=== PATIENT | female | born 1970 | race African-American/Black ===

== ENCOUNTER 2018-08-06 00:15 | Inpatient (IN) ==
[2018-08-06] MEDS ORDERED: NS 1,000 ML IV ONE (00:39)
[2018-08-06] MEDS ORDERED: ZOFRAN IV ONE (00:39)
[2018-08-06] MEDS ORDERED: TORADOL IV ONE (00:40)
--- NOTE | 2018-08-06 01:16 | PROVIDER DOCUMENTATION ---
This chart was entered by Sunni Bethea Scribe, acting as scribe for Jocelin Juarez CRNP. HPI-General Adult - General Source: patient - History of Present Illness -Gen Adult Nature of Presenting Problems: pt is a 48 yr old female presenting with complaint of worsening right chest pain , pt seen here yesterday morning for same, dx as pneumonia. pt reports despite taking the prescribed medications the pain is worsening, pt reports she can not stand or walk due to the pain. Location of Pain/Injury: reports: chest (right) Pain Radiation: reports: no radiation Quality of Pain: reports: pressure, sharp Severity: reports: severe Onset/Duration: reports: 2 days ago Timing: reports: still present, getting worse Context/Activities at Onset: reports: rest Modifying Factors: improves with: other medication (norco, levaquin- pain worsening) Associated Symptoms: reports: chest pain (right) Similar Symptoms Previously?: Yes Recently seen or treated by another doctor?: Yes <Jocelin Juarez - Last Filed: 08/06/18 01:47> <Toni Leong - Last Filed: 08/06/18 04:38> - General Chief Complaint: Return/Recheck Stated Complaint: RETURN/RECHECK Time Seen by Provider: 08/06/18 00:32 Allergies/Adverse Reactions: Patient Allergies Allergy/AdvReac Type Severity Reaction Status Date / Time No Known Allergies Allergy Verified 08/05/18 04:54 Home Medications: Home Medication List Medication Instructions Recorded Confirmed Last Taken Type Losartan/Hydrochlorothiazide 1 each PO DAILY 07/25/16 08/06/18 07/30/16 20:00 History [Losartan-Hctz 100-12.5 mg Tab] 1 Norgestrel-Ethinyl Estradiol 1 each PO DAILY 07/25/16 08/06/18 07/30/16 20:00 History [Elinest-28 Tablet] 1 Levofloxacin [Levaquin] 500 mg PO DAILY 7 Days #7 tab 08/05/18 08/06/18 Unknown Rx Oxycodone HCl/Acetaminophen 1 ea PO Q6-8H PRN PRN #10 tab 08/05/18 08/06/18 Unknown Rx [Percocet 5-325 mg Tablet] Review of Systems - Adult - REVIEW OF SYSTEMS - ADULT Constitutional: denies: chills, fever Eyes: denies: discharge, redness Ears, Nose, Mouth & Throat: denies: ear pain, sinus problem, throat pain Cardiovascular: reports: chest pain. denies: palpitations, syncope Respiratory: denies: cough, shortness of breath Gastrointestinal: reports: no symptoms reported Genitourinary: reports: no symptoms reported Musculoskeletal: denies: back pain, muscle aches, neck pain Integumentary: reports: no symptoms reported Neurological: denies: dizziness/vertigo, headache/migraines Psychiatric: reports: no symptoms reported Endocrine: reports: no symptoms reported Hematologic/Lymphatic: reports: no symptoms reported Allergic/Immunologic: reports: no symptoms reported All Other Systems: Reviewed and Negative <Jocelin Juarez - Last Filed: 08/06/18 01:47> Past History - Adult - PAST MEDICAL HISTORY-ADULT Review of Records: reports: Old Records Reviewed, Nursing Assessment Review, Medications Reviewed, Social history reviewed & non-contributory. Major Childhood Illnesses: reports: denies history Cardiovascular: reports: HTN Respiratory: reports: denies history Gastrointestinal: reports: denies history Obstetrical/Gynecological: reports: denies history Genitourinary: reports: denies history Musculoskeletal: reports: denies history Neurological: reports: denies history Endocrine/Immune: reports: thyroid disorder (goiter) Other Conditions: reports: denies history - PRIOR SURGERIES/PROCEDURES Surgical/Procedure History: reports: none - IMMUNIZATION STATUS Childhood Immunizations: See Nurse Assessment Flu Vaccine: See Nurse Assessment - FAMILY HISTORY Family History: reviewed, not pertinent - SOCIAL HISTORY Smoking: denies Substance Use: denies Living Situation: alone <Jocelin Juarez - Last Filed: 08/06/18 01:47> Physical Exam-General - PHYSICAL EXAM-ADULT Initial Vital Signs Reviewed: Yes - CONSTITUTIONAL General Appearance: alert, no apparent distress, obese - EYES Eyes: PERRL/EOMI - HEAD, EARS, NOSE, MOUTH & THROAT HENMT: normocephalic/atraumatic, moist mucous membranes - NECK Neck: non-tender, full range of motion, supple, normal inspection - RESPIRATORY Respiratory: lungs clear, normal breath sounds, other (difficulty assessing right side breath sounds due to pain response. pt reports marked tenderness to right chest) - CARDIOVASCULAR Cardiovascular: normal peripheral pulses, regular rate, rhythm, no edema - GASTROINTESTINAL (ABDOMEN) Abdominal Exam: normal bowel sounds, non tender, soft - LYMPHATIC Lymphatic: no adenopathy - MUSCULOSKELETAL Back Exam: normal inspection Extremity: normal range of motion, non-tender, normal inspection - SKIN Integumentary: normal color, normal turgor, warm/dry - NEUROLOGIC Neurologic: grossly normal, no motor/sensory deficits - PSYCHIATRIC Psych/Mental Status: normal mood/affect, normal thought content, normal thought process, oriented x 3 <Jocelin Juarez - Last Filed: 08/06/18 01:47> Progress - PLAN OF CARE/RESULTS Progress/Plan/Lab Results: Vital Signs - 8 hr 08/06/18 00:18 Temperature 98.1 F Pulse Rate 84 Respiratory Rate 18 Blood Pressure 139/85 O2 Sat by Pulse Oximetry 97 Orders Category Date Time Status Saline Loc NOW Care 08/06/18 00:38 Active BLOOD CULTURE [BLDCUL] Stat Lab 08/06/18 00:58 Ordered CBC WITH ELECTRONIC DIFF [HEME] Stat Lab 08/06/18 00:38 Ordered COMPREHENSIVE METABOLIC PANEL [CHEM] Stat Lab 08/06/18 00:38 Ordered D-DIMER [COAG] Stat Lab 08/06/18 00:39 Ordered LACTATE, PLASMA [CHEM] Stat Lab 08/06/18 00:39 Ordered 0.9% Sodium Chloride Inj [Ns] 1,000 ml Med 08/06/18 00:39 Active IV 125 mls/hr Ketorolac [Toradol] Med 08/06/18 00:40 Discontinued 30 mg IV NOW ONE Ondansetron [Zofran] Med 08/06/18 00:39 Discontinued 4 mg IV NOW ONE Result Diagrams: 08/06/18 01:00 08/06/18 01:00 - CHANGE OF SHIFT REPORT (ED Provider) Report Given and Care Transferred to:: Dr. Leong Time of Transfer: 01:45 Items Pending: Labs <Jocelin Juarez - Last Filed: 08/06/18 01:47> - PLAN OF CARE/RESULTS Progress/Plan/Lab Results: Vital Signs - 8 hr 08/06/18 00:18 Temperature 98.1 F Pulse Rate 84 Respiratory Rate 18 Blood Pressure 139/85 O2 Sat by Pulse Oximetry 97 Laboratory Results - last 24 hr 08/06/18 08/06/18 08/06/18 01:00 01:00 01:00 WBC 12.67 H RBC 4.06 L Hgb 11.9 L Hct 35.8 L MCV 88.2 MCH 29.3 MCHC 33.2 RDW Std Deviation 12.8 Plt Count 292 MPV 10.0 Immature Gran % (Auto) 0.2 Neut % (Auto) 77.2 H Lymph % (Auto) 11.4 L [place] % (Auto) 10.4 H Eos % (Auto) 0.6 Baso % (Auto) 0.2 Immature Gran # (Auto) 0.03 Neut # (Auto) 9.77 H Lymph # (Auto) 1.45 [place] # (Auto) 1.32 H Eos # (Auto) 0.08 Baso # (Auto) 0.02 D-Dimer, Quantitative Sodium 138 Potassium 3.5 Chloride 101 Carbon Dioxide 24 L Anion Gap 13 BUN 12 Creatinine 0.8 Estimated GFR/1.73 m2 > 60 BUN/Creatinine Ratio 15 Glucose 113 H Calculated Osmolality 276 Calcium 9.2 Total Bilirubin 0.30 AST 13 ALT 16 Alkaline Phosphatase 56 Total Protein 7.8 Albumin 3.6 Globulin 4.0 Albumin/Globulin Ratio 1.0 Plasma Lactate 1.0 08/06/18 01:00 WBC RBC Hgb Hct MCV MCH MCHC RDW Std Deviation Plt Count MPV Immature Gran % (Auto) Neut % (Auto) Lymph % (Auto) [place] % (Auto) Eos % (Auto) Baso % (Auto) Immature Gran # (Auto) Neut # (Auto) Lymph # (Auto) [place] # (Auto) Eos # (Auto) Baso # (Auto) D-Dimer, Quantitative 3.31 H Sodium Potassium Chloride Carbon Dioxide Anion Gap BUN Creatinine Estimated GFR/1.73 m2 BUN/Creatinine Ratio Glucose Calculated Osmolality Calcium Total Bilirubin AST ALT Alkaline Phosphatase Total Protein Albumin Globulin Albumin/Globulin Ratio Plasma Lactate Orders Category Date Time Status Saline Loc NOW Care 08/06/18 00:[address] ANGIOGRM PULMONARY ARTERIES [CT] Stat Exams 08/06/18 02:38 Taken BLOOD CULTURE [BLDCUL] Stat Lab 08/06/18 00:58 Ordered CBC WITH ELECTRONIC DIFF [HEME] Stat Lab 08/06/18 01:00 Completed COMPREHENSIVE METABOLIC PANEL [CHEM] Stat Lab 08/06/18 01:00 Completed D-DIMER [COAG] Stat Lab 08/06/18 01:00 Completed LACTATE, PLASMA [CHEM] Stat Lab 08/06/18 01:00 Completed 0.9% Sodium Chloride Inj [Ns] 1,000 ml Med 08/06/18 00:39 Active IV 125 mls/hr CefTRIAXONE [Rocephin] 1 gm Med 08/06/18 01:44 Discontinued 0.9% Sodium Chloride Inj [Ns] 50 ml IV NOW Ketorolac [Toradol] Med 08/06/18 00:40 Discontinued 30 mg IV NOW ONE Ondansetron [Zofran] Med 08/06/18 00:39 Discontinued 4 mg IV NOW ONE Result Diagrams: 08/06/18 01:00 08/06/18 01:00 <Toni Leong - Last Filed: 08/06/18 04:38> Departure - Departure Date of Disposition Decision: 08/06/18 Certified Medical Emergency: Emergent - Critical Care Note This patient required my direct & personal management of CC.: No <Jocelin Juarez - Last Filed: 08/06/18 01:47> - Departure Time of Disposition Decision: 04:38 Certified Medical Emergency: Emergent - Critical Care Note This patient required my direct & personal management of CC.: No <Toni Leong - Last Filed: 08/06/18 04:38> - Departure DIAGNOSIS: Multiple pulmonary emboli, Pulmonary infarct Disposition: ADMITTED INPATIENT 09 Condition: Serious Additional Freetext Instructions: ED Follow Up Instructions: You have been treated by a care provider in the Emergency Department. These instructions are being provided to you so you can have an understanding of how to care for yourself upon discharge. Upon discharge from the Emergency Department, you are responsible for making arrangements for follow-up care by a physician of your choice. Take all prescribed medications as directed. Return to the Emergency Department immediately for any new or worsening symptoms. You may call the Physician Referral phone number at [phone] to obtain a list of Physicians who are taking new patients. Referrals and Follow-Ups: Susan Ba MD [Primary Care Provider] - Discharge Education: Community-Acquired Pneumonia, Adult, Nlyx-[id number] Attestation - Physician/ ROSTIA Attestation Patient care was provided by Advanced Practice Provider:: Yes Advanced Practice Provider:: Jocelin Juarez Advanced Practice Provider documentation review:: The Mid-level provider documentation, treatment plan and medical decision making was reviewed by the physician who agrees with all treatment and medical decision making by the MLP. The physician spent face to face time with patient:: Yes Advanced Practice Provider documentation review:: Supervising physician onsite and consulted in the evaluation and care of this patient. The physician did have a face to face encounter with the patient. <Jocelin Juarez - Last Filed: 08/06/18 01:47> - Physician/ ROSITA Attestation The physician spent face to face time with patient:: Yes Advanced Practice Provider documentation review:: Supervising physician onsite and consulted in the evaluation and care of this patient. The physician did have a face to face encounter with the patient. <Toni Leong - Last Filed: 08/06/18 04:38> This chart was documented by the indicated scribe, (Sunni Bethea Scribe) and accurately reflects the services I performed and decisions made by , Jocelin Juarez CRNP, as attested by the provider's signature.
[2018-08-06 01:24] LABS: BASO# 0.02 X1000 (0.0-0.2); BASO% 0.2 % (0.0-0.8); EOS# 0.08 X1000 (0.0-0.7); EOS% 0.6 % (0.0-10.0); HEMATOCRIT 35.8 % (37.0-47.0); HEMOGLOBIN 11.9 g/dL (12.0-16.0); IMM GRAN# 0.03 X1000 (0.0-0.04); IMM GRAN% 0.2 % (0.0-0.5); LYMPH# 1.45 X1000 (1.2-3.4); LYMPH% 11.4 % (20.5-51.1); MCH 29.3 PG (27-31); MCHC 33.2 g/dL (33-37); MCV 88.2 FL (81-99); MONO# 1.32 X1000 (0.11-0.59); MONO% 10.4 % (1.7-9.3); NEUT# 9.77 X1000 (1.4-6.5); NEUT% 77.2 % (42.2-75.2); PLT 292 X1000 (130-400); RBC 4.06 XMIL (4.2-5.4); RDW 12.8 % (11.5-14.5); WBC 12.67 X1000 (4.8-10.8)
[2018-08-06] MEDS ORDERED: ROCEPHIN 1 GM in NS 50 ML IV ONE (01:44)
[2018-08-06 01:45] LABS: AGAP 13; ALBUMIN 3.6 g/dL (3.5-5.0); ALKALINE PHOSPHATASE 56 U/L (32-104); BUN 12 mg/dL (8-22); CALCIUM 9.2 mg/dL (8.8-10.2); CHLORIDE 101 mmol/L (98-107); COSMO 276; CREATININE 0.8 mg/dL (0.5-0.9); ESTIMATED GFR > 60; GLUCOSE 113 mg/dL (70-104); GOT 13 U/L (10-30); GPT 16 U/L (10-36); POTASSIUM 3.5 mmol/L (3.5-5.1); SODIUM 138 mmol/L (136-145); TCO2 24 mmol/L (25-35); TOTAL PROTEIN 7.8 g/dL (6.3-8.3)
[2018-08-06] MEDS ORDERED: LOVENOX ONE (05:28)
[2018-08-06] MEDS: LOVENOX SUBQ SCH ×2 (05:30→20:44)
--- NOTE | 2018-08-06 07:43 | Diag Imaging Result Doc PS360 ---
EXAM: CT ANGIOGRM PULMONARY ARTERIES - 08/06/2018 HISTORY: chest pain TECHNIQUE: CT angiogram pulmonary arteries with intravenous contrast. Axial, coronal, and 3-D MIP images are obtained. COMPARISON: None. FINDINGS: There are filling defects in bilateral pulmonary arteries. These are consistent with pulmonary emboli. The largest embolus burden is located at the lower lobe and middle lobe on the right. There is no indication of aortic dissection. There is infiltrate and/or atelectasis at the right lower lobe. The possibility of pulmonary infarct at the right lower lobe cannot be excluded. There is a small right pleural effusion. There is subsegmental atelectasis elsewhere. There is no pneumothorax identified. The right thyroid lobe is either small or surgically absent. The left thyroid lobe is heterogeneous. Included sections of upper abdomen show a 2.3 cm cyst in the caudate lobe of liver. There is a 1.6 cm cyst at the visualized upper right kidney. There are small to borderline retroperitoneal lymph nodes near the celiac axis. IMPRESSION: Bilateral pulmonary emboli, most prominent on the right. Infiltrate and atelectasis at right lower lobe. The possibility of pulmonary infarct cannot be excluded. Small right pleural effusion. Small or surgically absent right thyroid lobe. Heterogeneous left thyroid lobe. Hepatic and right renal cyst. Small to borderline upper abdominal retroperitoneal lymph nodes. The airborne mission systems superintendent radiologist provided preliminary results at 4:27 AM on 08/06/2018. Electronically signed by Shiva Velez 08/06/2018 7:41 AM
[2018-08-06] MEDS ORDERED: PERCOCET-5 PO PRN (08:20)
[2018-08-06] MEDS ORDERED: LOVENOX SUBQ SCH ×2 (09:00)
[2018-08-06] MEDS ORDERED: HYZAAR 100/12.5 MG TAB PO SCH (09:00)
[2018-08-06] MEDS ORDERED: HYDROCHLOROTHIAZIDE PO SCH (09:00)
[2018-08-06] MEDS: MORPHINE IV PRN ×2 (09:28→16:18)
[2018-08-06] MEDS: ZITHROMAX PO SCH (09:29)
[2018-08-06] MEDS: COZAAR PO SCH (09:29)
--- NOTE | 2018-08-06 12:11 | Extremity Venous Study ---
EXAM: Venous U/S Bilateral Legs - 08/06/2018 HISTORY: bilateral PE TECHNIQUE: Bilateral lower extremity Doppler venous ultrasound COMPARISON: None. FINDINGS: The deep veins of the bilateral lower extremities demonstrate flow and compressibility. There are no filling defects identified in either lower extremity. IMPRESSION: No evidence of deep venous thrombosis in either lower extremity. Electronically signed by Shiva Velez 08/06/2018 12:08 PM
[2018-08-06] MEDS: TORADOL IV SCH ×3 (12:36→22:40)
--- NOTE | 2018-08-06 12:39 | HISTORY AND PHYSICAL ---
CHIEF COMPLAINT: Shortness of breath and back pain. HISTORY OF PRESENT ILLNESS: This is a 48-year-old female with a history of hypertension, who presents to the emergency room complaining of right-sided lower rib cage pain that starts in the front and goes around to the side into the back. It is increased with movement and deep breath. It does decrease somewhat with lying still. It started out with dyspnea on exertion, and she is going to shortness of breath at rest. In retrospect, she states that symptoms actually began around [place], and she was evaluated on 08/10/2017 and given antibiotics and steroids. Symptoms did not improve. She was evaluated again on 07/16/2018, given antibiotics, as well as steroids. Symptoms only continued to increase. She was found to have a white count of 12.6 with a D-dimer of 3.31. Pulmonary revealed bilateral pulmonary emboli with the largest embolus burden at the lower lobe and middle lobe on the right, as well as an infiltrate at the right lower lobe with the possibility of a pulmonary infarct. PAST MEDICAL HISTORY: Hypertension. PAST SURGICAL HISTORY: Goiter removal. SOCIAL HISTORY: She denies alcohol, tobacco, or illicit drug use. ALLERGIES: No known drug allergies. HOME MEDICATIONS: 1. Losartan. 2. Hydrochlorothiazide 100/12.5. 3. Eoinest [*]28 tablets, 1 daily. REVIEW OF SYSTEMS: I discussed with the patient with pertinent positives stated in the HPI. She denied any syncope, dizziness, any palpitations, any fever, chills, any night sweats, a productive cough, any nausea, vomiting, diarrhea, constipation, black or bloody vomitus or stools. No hematuria, dysuria, frequency or urgency. PHYSICAL EXAMINATION: GENERAL: This is a 48-year-old female who is lying flat in the bed in no distress. VITAL SIGNS: Blood pressure is 147/85 with a heart rate of 78, respirations are 18, temperature is 98.3. She is on O2 at 2 L. HEENT: Pupils are equal, round, and react to light. EOMs are intact. Sclerae are anicteric. Head is normocephalic, atraumatic. Mucous membranes are moist. NECK: Supple with trachea midline. CARDIOVASCULAR: Regular rate and rhythm. S1 and S2 are appreciated. PULMONARY: Breath sounds are diminished throughout. Chest rises and falls symmetrically with respiration. Her right-sided chest wall is tender to palpation around the lower rib cage under her right breast. GASTROINTESTINAL: Abdomen is soft, nontender, nondistended with bowel sounds in all 4 quadrants. GENITOURINARY: She has no CVA nor suprapubic tenderness. NEUROLOGIC: She is alert and oriented x3. SKIN: Warm and dry. EXTREMITIES: She has no lower extremity edema with peripheral pulses palpable x4 extremities. LABORATORY DATA: WBC is 12.6 with hemoglobin 11.9, hematocrit 35.8, platelets of 292,000. D- dimer is 3.31. Sodium 138, potassium 3.5. BUN 12, creatinine 0.8 with a glucose of 113. Pulmonary arteriogram revealed bilateral pulmonary emboli with the largest embolus burden located in the lower and middle lobe on the right. There is no indication of aortic dissection. There is an infiltrate and/or atelectasis at the right lower lobe. The possibility of pulmonary infarct at the right lower lobe cannot be excluded. There is no pneumothorax identified. Blood cultures are pending. ASSESSMENT AND PLAN: 1. Bilateral pulmonary emboli. Hypercoag panel has been drawn. She received Lovenox 1 mg/kg in the emergency room, and we will continue this. We will consult [employer] to evaluate for Eliquis affordability. 2. Right lower lobe pneumonia versus pulmonary infarct. Blood cultures were drawn. We will give antibiotic coverage of Rocephin and azithromycin and any further antibiotics will be culture driven. We will start incentive spirometer, give supplemental oxygen as needed. 3. Hypertension. We will continue her home medications. 4. Shortness of breath. We will continue supplemental oxygen. The patient will be transferred to [facility] for pulmonary followup. The patient does state that she drove to [place]. Around the 06/15/2018, she drove without stopping the trip there as well as the trip back home. As DVT could have precipitated this, we will get a lower extremity Doppler bilateral. Further treatments pending hospital course. Dictated by CATHY Mckeon for Sohail Lucas MD This chart was documented by, CATHY Mckeon and accurately reflects the services performed, treatment plan and medical decisions as attested by the providers signature Sohail Lucas MD. cc: CATHY Mckeon, MD
[2018-08-06] MEDS: ROCEPHIN 1 GM in NS 50 ML IV SCH (20:45)
[2018-08-07] MEDS: MORPHINE IV PRN (00:18)
[2018-08-07 00:51] LABS: URINE SOURCE CATH
[2018-08-07 01:02] LABS: BILIRUBIN URINE NEGATIVE (NEGATIVE); BLOOD URINE LARGE (NEGATIVE); CLARITY CLEAR (CLEAR); COLOR YELLOW; GLUCOSE URINE NEGATIVE (NEGATIVE); KETONE URINE NEGATIVE (NEGATIVE); LEUKOCYTES URINE NEGATIVE (NEGATIVE); NITRITE URINE NEGATIVE (NEGATIVE); PH URINE 5.5; PROTEIN URINE NEGATIVE (NEGATIVE); SP GRAVITY URINE 1.025; UROBILINOGEN URINE 0.2 EU/dL (0.2-1.0)
[2018-08-07] MEDS: TORADOL IV SCH (05:37)
[2018-08-07 05:38] LABS: HEMATOCRIT 33.1 % (37.0-47.0); HEMOGLOBIN 10.8 g/dL (12.0-16.0); MCH 29.4 PG (27-31); MCHC 32.6 g/dL (33-37); MCV 90.2 FL (81-99); MPV 9.8 FL (7.4-10.4); RBC 3.67 XMIL (4.2-5.4); RDW 12.6 % (11.5-14.5); WBC 9.5 X1000 (4.8-10.8)
[2018-08-07 06:17] LABS: AGAP 13; BUN 10 mg/dL (8-22); CALCIUM 8.3 mg/dL (8.8-10.2); CHLORIDE 100 mmol/L (98-107); COSMO 275; CREATININE 0.8 mg/dL (0.5-0.9); ESTIMATED GFR > 60; GLUCOSE 99 mg/dL (70-104); POTASSIUM 3.4 mmol/L (3.5-5.1); SODIUM 138 mmol/L (136-145); TCO2 25 mmol/L (25-35)
[2018-08-07] MEDS: ZITHROMAX PO SCH (08:51)
[2018-08-07] MEDS: HYDROCHLOROTHIAZIDE PO SCH (08:51)
[2018-08-07] MEDS: LOVENOX SUBQ SCH ×2 (08:52→21:02)
[2018-08-07] MEDS: COZAAR PO SCH (08:52)
[2018-08-07] MEDS ORDERED: KLOR-CON PO ONE (09:34)
--- NOTE | 2018-08-07 10:31 | PROGRESS NOTE ---
DATE: 08/07/2018 SUBJECTIVE: Patient is still complaining of shortness of breath, but she states that she is feeling a little bit better. She does not have pain at the level of the lower extremities and DVT has been ruled out. She has bilateral pulmonary emboli, that worse on the right side, and echocardiogram has been requested. For now, we will continue with the same management. Hematology/Oncology Department will evaluate this patient. OBJECTIVE: Vital Signs: Temperature 97.8 degrees, pulse 81, respiratory rate 21, blood pressure 154/84, oxygen saturation 92 on 2 L of nasal cannula. HEENT: Head normocephalic. No trauma. PERRLA. Neck: Supple. No JVD. No masses. Central trachea. Chest: Some crepitus at the bases, mostly on the left side. Abdomen: Soft, nontender, nondistended. No hepatosplenomegaly. Extremities: No edema. No clubbing. No cyanosis. Neurological: The patient is alert and oriented x3. No focal deficits. LABORATORY: WBC 9.5, hemoglobin 10.8, hematocrit 33.1, platelets 238,000. Sodium 138, potassium 3.4, chloride 100, bicarbonate 25, BUN 10, creatinine 0.8, glucose 99, calcium 8.3. ASSESSMENT AND PLAN: 1. Bilateral pulmonary emboli, worse on the right side. Hypercoagulability panel has been drawn. She is getting Lovenox twice a day 1 mg/kg. Pulmonary Department and Hematology/Oncology Department has been requested for evaluation. 2. Right lower lobe pneumonia versus pulmonary infarct. Continue with antibiotics. WBC is better. She is not complaining of fever or chills. Continue with incentive spirometer and oxygen supplementation. 3. Hypertension. Continue home medications. 4. Shortness of breath. Continue with supplemental oxygen. cc: Malik Roberts MD
[2018-08-07 11:10] LABS: ALLEN TEST YES; BE 3.3 mmoll (-3.0-3.0); BLOOD TYPE ARTERIAL; HCO3-(ACT) 27.4 mmoll (20.0-26.0); METHB 1.3 % (0.0-1.5); O2(CT) 16.5 mL/dL (15.0-23.0); O2HB 92.7 % (95.0-99.0); PCO2(98.6) 41 mmHg (35-45); PO2(98.6) 76 mmHg (60-100); SAMPLE BLOOD; SAO2 96.2 % (95.0-100.0); THB 12.6 g/dL (11.5-17.4); pH(98.6) 7.44 (7.35-7.45)
[2018-08-07 11:20] LABS: MODALITY CANNULA
[2018-08-07] MEDS ORDERED: ROCEPHIN ONE (17:45)
--- NOTE | 2018-08-07 18:18 | ECHO REPORT ---
ORDER DATE: 08/07/2018 CLINICAL INDICATIONS: Hypertension. Morbidly obese. Pulmonary edema or embolus. Intravenous contrast was injected, Optison, to opacify the left ventricular chamber. The study was technically difficult. M-MODE MEASUREMENTS: Left ventricle end diastole: 4.1 cm. Left ventricle end systole: 2.2 cm. Posterior wall: 0.9 cm. Interventricular septum: 1.1 cm. Left atrium: 4.0 cm. Aortic root: 2.6 cm. SUMMARY OF 2-DIMENSIONAL IMAGIN. The left ventricular function appears to be preserved. Ejection fraction is estimated at 60% to 65%. No wall motion abnormality is noted. 2. The right ventricle appears to be grossly unremarkable. 3. The aortic valve is normal. Color flow mapping within normal range. 4. The mitral valve is normal. Color flow mapping also within normal range. 5. Pulse wave Doppler of mitral inflow is normal. 6. Tissue Doppler of septal and lateral mitral annulus averages 16 cm. 7. There is no diastolic dysfunction. 8. The tricuspid valve shows trace of regurgitation. 9. Pulmonary pressure is normal. 10.Pulmonic valve is normal. Color flow mapping unremarkable. 11.There is no pericardial effusion, mass, and no thrombus. 12.The atria appear to be unremarkable. Clinical correlation is recommended. cc: MD Arvin Tobar MD
[2018-08-07] MEDS: ROCEPHIN 1 GM in NS 50 ML IV SCH (21:01)
[2018-08-08] MEDS: MORPHINE IV PRN ×2 (04:02→07:32)
--- NOTE | 2018-08-08 04:42 | HEMO/ONC CONSULTATION ---
DATE: 08/07/2018 REQUESTING PHYSICIAN: Consultation requested by hospitalist service. REASON FOR CONSULT: Consultation is for acute bilateral PTE. HISTORY OF PRESENT ILLNESS: Ms. Reeves is a 48-year-old female , who presented to the emergency room complaining of right-sided lower rib cage pain. She has been having symptoms for what seems like a bit of time. It seems like her symptoms likely began around 2017. She was given rounds of antibiotics and steroids without improvement of her symptoms. She has been having increasing shortness of breath with exertion as well as at rest. Evaluation in the emergency department did reveal her to have bilateral pulmonary emboli with the largest embolus burden in the lower lobe and middle lobe on the right. The patient does report having a long trip to [place] prior to the onset of her symptoms. She drove several hours without getting out of a car to move around. She has now been admitted for further evaluation and treatment. PAST MEDICAL HISTORY: Hypertension. PAST SURGICAL HISTORY: She had a goiter removed. SOCIAL HISTORY: She denies any alcohol, tobacco, or illicit drug use. FAMILY HISTORY: Denies any history of DVT or PTE. REVIEW OF SYSTEMS: Twelve point review of systems was conducted, is negative except for expressed in HPI. PHYSICAL EXAMINATION: Vital Signs: Temperature 98.5 degrees, heart rate 88, respirations 20, blood pressure 152/89, O2 saturation 100% on 2 L nasal cannula. General: This is an female lying in hospital bed. She is in no acute distress at this time. Head: Normocephalic, atraumatic. Eyes: Pupils equal, round, reactive. Ears, nose , throat, mouth: Oral mucosa is normal. Gross auditory acuity intact. Cardiovascular: S1, S2 heard. No murmurs, gallops, rubs appreciated. Respiratory: Chest is clear. No respiratory effort. Gastrointestinal: Abdomen is obese. Positive bowel sounds noted. Musculoskeletal: No bony abnormalities. Extremities: No edema. Neurologic: Patient alert and oriented x3. With no focal motor deficits noted. LABS AND STUDIES: White blood cells 9.50, hemoglobin 10.8, hematocrit 33.1, platelet count 238,000. Sodium 138, potassium 3.4, chloride 100, CO2 25, BUN 10, creatinine 0.8, glucose 99. Lower extremity bilateral Dopplers were negative for any DVTs. CT angio shows bilateral pulmonary emboli, most prominent on the right. ASSESSMENT AND PLAN: 1. Acute bilateral pulmonary thromboemboli. The patient is on Lovenox 1 mg/kg q.12 hours. Would recommend transitioning to a novelty oral anticoagulant at discharge. Xarelto is favored, as Xarelto will eventually become once daily dosing. Though, Eliquis can also be used. Hypercoagulable workup has already been ordered and is currently pending. We will follow up on those results. We will have the patient return to us in our office and review her hypercoagulable workup and discussed the length of needed anticoagulation. At the minimum, she will require 3 months of anticoagulation. 2. Right lower lobe pneumonia versus pulmonary infarct. Blood cultures are pending. She is currently on antibiotics per the primary team. Continue supplemental oxygen. 3. Hypertension. Continue current management. We want to thank you for consulting us on Ms. Reeves. Will continue to follow along and adjust our treatment plan per her hospital course. Dictated by FLORENCE Díaz for Ramila Murphy MD cc: Ramila Murphy MD I have seen and examined the patient and the above note reflects my assessment and plan. Ramila ROMO
[2018-08-08 05:20] LABS: BASO# 0.02 X1000 (0.0-0.2); BASO% 0.2 % (0.0-0.8); EOS# 0.13 X1000 (0.0-0.7); EOS% 1.4 % (0.0-10.0); HEMATOCRIT 32.5 % (37.0-47.0); HEMOGLOBIN 10.6 g/dL (12.0-16.0); IMM GRAN# 0.04 X1000 (0.0-0.04); IMM GRAN% 0.4 % (0.0-0.5); LYMPH# 1.47 X1000 (1.2-3.4); LYMPH% 16.2 % (20.5-51.1); MCH 29.1 PG (27-31); MCHC 32.6 g/dL (33-37); MCV 89.3 FL (81-99); MONO# 0.94 X1000 (0.11-0.59); MONO% 10.4 % (1.7-9.3); MPV 9.7 FL (7.4-10.4); NEUT# 6.47 X1000 (1.4-6.5); NEUT% 71.4 % (42.2-75.2); PLT 269 X1000 (130-400); RBC 3.64 XMIL (4.2-5.4); RDW 12.2 % (11.5-14.5); WBC 9.07 X1000 (4.8-10.8)
[2018-08-08 05:42] LABS: AGAP 11; BUN 9 mg/dL (8-22); CALCIUM 8.1 mg/dL (8.8-10.2); CHLORIDE 102 mmol/L (98-107); COSMO 276; CREATININE 0.7 mg/dL (0.5-0.9); ESTIMATED GFR > 60; GLUCOSE 101 mg/dL (70-104); POTASSIUM 3.6 mmol/L (3.5-5.1); SODIUM 139 mmol/L (136-145); TCO2 26 mmol/L (25-35)
--- NOTE | 2018-08-08 06:24 | CONSULTATION ---
DATE OF CONSULTATION: 08/07/2018 REQUESTING PROVIDER: CATHY Gomez REASON FOR CONSULTATION: Bilateral pulmonary embolism, pneumonia, and questionable pulmonary infarct. HISTORY OF PRESENT ILLNESS: This is a 48-year-old -[place] female with medical history of hypertension. She presented to the ER on 08/06/2018 with worsening right-sided lower rib cage pain and right chest pain. She had an ER visit in the morning of 08/05/2018 for the same symptoms. She was diagnosed with pneumonia and discharged home with antibiotics at that time. This time, CT angiogram pulmonary arteries revealed bilateral pulmonary emboli, most prominent on the right; infiltrates and atelectasis at the right lower lobe; possible pulmonary infarct, and small right pleural effusion. Bilateral lower extremity doppler showed no evidence of deep venous thrombosis in either lower extremity. She has been admitted to the [facility] for bilateral pulmonary emboli and right lower lobe pneumonia versus pulmonary infarct. At the time of my examination, the patient is lying on the bed, comfortable with her daughter at the bedside. She reports she drove to [place] on June 29 and drove back on Jun.30 with her daughter. It took more than 11 hours each trip and they did not take any break except filling the gas. After that trip,her feet were swelling up some but there was no foot or leg pain until July 08, 2018, she started having right-sided low back pain. She went to urgent care, they diagnosed her with bad back. Two days later she went back to urgent care and they treated her for severe sinus infection with antibiotics and steroids, but her back pain kept worsening. She reports she is on oral control pill too. The pain is increased with movement and deep breath and relieved some with rest; She also has severe SOB, which is getting some better now. She denied cough, fever, chills, headache, or palpitations, nausea or vomiting, diarrhea. PAST MEDICAL HISTORY: Hypertension. PAST SURGICAL HISTORY: Goiter removal. SOCIAL HISTORY: She reports no history of alcohol, tobacco, or illicit drug use. ALLERGIES: No known drug allergies. FAMILY HISTORY: Reviewed and noncontributory. REVIEW OF SYSTEMS: A 10 point review of systems was reviewed and pertinents are listed in the HPI, otherwise noncontributory. PHYSICAL EXAMINATION: Vital Signs: Temperature 98.7. Blood pressure 154/84. Pulse 81. Respiratory rate 21. Oxygen saturation 92% on nasal cannula at 1 liter. General: This is a 48- year-old female who is lying on the bed with the head of the bed elevated maximally. She is in no acute distress. The patient's daughter is at the bedside. HEENT: Atraumatic. Trachea midline. Mucosa pink, moist. Respiratory: Diminished breathing sounds throughout bilaterally. Chest rises and falls symmetrically with breathing. The patient reports right-sided chest wall and right-sided lower rib thread cutter tender on palpation. Gastrointestinal: Abdomen is soft, nontender, nondistended, and obese. Normoactive bowel sounds in all 4 quadrants. Cardiovascular: Regular rate and rhythm without murmur noted. Extremities: No pedal edema. No cyanosis. No clubbing. Neurologic: Alert and oriented x3. Speech fluent. Follows commands. All 4 extremities move equally bilaterally. LABORATORY DATA: White blood cells 9.5, hemoglobin 10.8, hematocrit 33.1, platelets 238. Sodium 138, potassium 3.4, chloride 100, carbon dioxide 25, BUN 10, creatinine 0.8, glucose 99. ABG: PH 7.44, PCO2 41, PO2 76, HCO3 27.4, base excess 3.3, and oxyhemoglobin 22.7. ASSESSMENT AND PLAN: This is a 48-year-old female with a history of hypertension. She has been admitted for bilateral pulmonary emboli, right lower lobe pneumonia versus pulmonary infarct, and shortness of breath. 1. Bilateral pulmonary emboli. 2. Right lower lobe pneumonia versus pulmonary infarct with pleurisy. 3. Shortness of breath. PLAN: 1. Continue anticoagulant, antibiotic and morphine as you are doing. 2. Continue supplemental oxygen as needed. 3. Check ABG and CXR as indicated. 4. Continue gastrointestinal and deep venous thrombosis prophylaxis. Thank you for the courtesy of this consult. Dictated by CATHY Wood for Arvin Saldaña MD cc: CATHY Wood MD [facility]
[2018-08-08] MEDS: LOVENOX SUBQ SCH ×3 (08:23→20:56)
[2018-08-08] MEDS: ZITHROMAX PO SCH (08:23)
[2018-08-08] MEDS: COZAAR PO SCH (08:23)
[2018-08-08] MEDS: HYDROCHLOROTHIAZIDE PO SCH (08:23)
--- NOTE | 2018-08-08 10:48 | PROGRESS NOTE ---
DATE: 08/08/2018 SUBJECTIVE: This patient feels better. She is still complaining of some pain at the level of the right thoracic area, lower part, likely due to a pulmonary infarct. She has bilateral pulmonary emboli that is worse on the right side. Echocardiogram did not show any abnormality. We will continue with the same management. Today, she will receive the last dose of Lovenox during the night and tomorrow hopefully she will receive the first dose of Xarelto. Will monitor this patient as an outpatient. OBJECTIVE: Vital Signs: Temperature 99, pulse 79, respiratory rate 17, blood pressure 147/73, oxygen saturation 97% on 2 L of nasal cannula. HEENT: Head normocephalic. No trauma. PERRLA. Neck: Supple. No JVD. No masses. Central trachea. Chest: Some crepitus at the bases, mostly on the right side. Abdomen: Soft, nontender, nondistended. No hepatosplenomegaly. Extremities: No edema. No clubbing. No cyanosis. Neurological: The patient is alert and oriented x3. No focal deficits. LABORATORY: WBC 9, hemoglobin 10.6, hematocrit 32.5, platelets 269. Sodium 139, potassium 3.6, chloride 102, bicarbonate 26, BUN 9, creatinine 0.7, glucose 101, calcium 8.1. ASSESSMENT AND PLAN: 1. Bilateral pulmonary emboli, worse on the right side. Hypercoagulability panel has been drawn. She is getting Lovenox twice a day and I will start Xarelto tomorrow morning. Hematology- Oncology has already evaluated this patient and they will monitor this patient as an outpatient as well. 2. Right lower lobe pneumonia versus pulmonary infarct. Continue with antibiotics. WBC is better. She is not complaining of fever or chills. Continue with incentive spirometer and oxygen supplementation. 3. Hypertension. Continue home medication. 4. Shortness of breath likely secondary to 1 and 2. Continue with oxygen supplementation. cc: Malik Roberts MD
[2018-08-08] MEDS: ROCEPHIN 1 GM in NS 50 ML IV SCH (20:56)
[2018-08-09] MEDS ORDERED: XARELTO PO SCH (09:00)
[2018-08-09] MEDS: COZAAR PO SCH (09:19)
[2018-08-09] MEDS: HYDROCHLOROTHIAZIDE PO SCH (09:19)
[2018-08-09] MEDS: ZITHROMAX PO SCH (09:20)
[2018-08-09 15:28] VITALS: BP 117/46
--- NOTE | 2018-08-10 02:21 | DISCHARGE SUMMARY ---
ADMISSION DATE: 08/06/2018 DISCHARGE DATE: 08/09/2018 DISCHARGE DIAGNOSES: 1. Bilateral pulmonary emboli, worse on the right side. 2. Right lower lobe pneumonia, there is a pulmonary infarct. 3. Hypertension. HOSPITAL COURSE: The patient is a 48-year-old female with a past medical history of hypertension who presented to the emergency department complaining of right-sided lower ribcage pain that basically started in the front and goes around to the side into the back. It is increased with movement and deep breaths. She was admitted on 08/06/2018. She states that everything started out with dyspnea on exertion, but now she is even short of breath at rest. As per the patient she believes that the symptoms began around [place] for which she was multiple times and given antibiotics and steroids, but the symptoms never improved. She was found to have white blood cells of 12.6, and the D-dimer elevated at 3.31. CT angiogram of the chest showed bilateral pulmonary emboli with the largest embolus burden at the lower lobe and middle lobe on the right side. Also she had some infiltrates at the level of the right lower lobe, with the possibility of pulmonary infarct. Initially she was admitted at [facility] and then transferred to [facility] for pulmonary follow up. The patient states that she drove to [place] around 06/15/2018, and also she did the trip back home. On the other hand, this patient also takes Elinest, which is a contraceptive pill that can cause also blood clots. That treatment has been stopped. She was placed on Lovenox twice a day and transferred to [facility]. She was evaluated by the Pulmonary Department and the Hematology Department. Then, after a few days she was switched to Xarelto. Echocardiogram did not show any abnormality. She was feeling better on a daily basis. Today I requested a home O2 evaluation and she does qualify for it, when she walks she is still feeling a little bit tired but better compared with the admission, and the oxygen saturation dropped to 83. She will be discharged with an acute follow up by Hematology/Oncology Department. She has an appointment on 08/15/2018 at 2:30 p.m. At the time of discharge this patient was in a stable medical condition, tolerating p.o. and ambulating. DISCHARGE MEDICATIONS: 1. Losartan/hydrochlorothiazide 1 tablet p.o. daily. 2. Xarelto 50 mg p.o. b.i.d. to complete 21 days and then 20 mg p.o. daily. 3. Keflex 500 mg p.o. q.8 hours. 4. Zithromax 250 mg p.o. daily. DISCHARGE PHYSICAL EXAMINATION: Vital Signs: Temperature 98.3 degrees, pulse 82, respiratory rate 18, blood pressure 117/46, oxygen saturation 91% on room air, 83% on room air with physical activity. HEENT: Head is normocephalic. No trauma or PERRLA. Neck: Supple. No JVD. Central trachea. Chest: Clear to auscultation. No wheezing. No rales. Abdomen: Soft, nontender, nondistended. No hepatosplenomegaly. Extremities: No edema. No clubbing. No cyanosis. Neurological: The patient is alert and oriented x3. No focal deficits. LABORATORY DATA: WBC 9, hemoglobin 10.6, hematocrit 32.5, platelets 269,000. Sodium 139, potassium 3.6, chloride 102, bicarbonate 26, BUN 9, creatinine 0.7, glucose 101, calcium 8.1. ASSESSMENT AND PLAN: I have recommended to this patient to discontinue her oral contraceptive pill coma. She will be discharged with home oxygen. TIME SPENT: Time spent discharging this patient was 30 minutes. cc: Malik Roberts MD
== END 2018-08-09 17:05 | disposition home health service (06) | DRG 175 ==
LOC: P.ED 00:15 → SUATTDRO 00:16 → P.MEDSURG 05:12 → 3S 21:24 → 4N 08-08 14:08
PROVIDERS: ATTEND Internal Medicine
CPT/HCPCS: 71275; 80048; 80053; 81001; 81240; 81241; 82805; 83090; 83605; 85025; 85027; 85300; 85301; 85302; 85306; 85379; 85612; 85613; 85730; 86147; 87040; 93306; 93970; 94761; 94799; 96365; 96372; 96375; 99284; A9270; C8929; J0696; J1650; J1885; J2270; J2405; J7030; Q9957; Q9967

== ENCOUNTER 2019-04-25 17:34 | Observation (INO) ==
--- NOTE | 2019-04-25 17:57 | EKG Report ---
Test Performed on : 04/25/2019 5:40:40 PM Test Reason : chest pain Blood Pressure : / mmHG Vent. Rate : 073 BPM Atrial Rate : 073 BPM P-R Int : 222 ms QRS Dur : 094 ms QT Int : 404 ms P-R-T Axes : 048 010 019 degrees QTc Int : 445 ms Sinus rhythm. with 1st degree AV block. Otherwise normal ECG When compared with ECG of 25-JUL-2016 10:39, NV interval has increased Unconfirmed Result
[2019-04-25] MEDS ORDERED: ASPIRIN PO ONE (18:04)
--- NOTE | 2019-04-25 18:21 | PROVIDER DOCUMENTATION ---
HPI-Chest Pain - General Chief Complaint: Chest Pain Stated Complaint: CHEST PAIN Time Seen by Provider: 04/25/19 18:20 Allergies/Adverse Reactions: Patient Allergies Allergy/AdvReac Type Severity Reaction Status Date / Time No Known Allergies Allergy Verified 04/25/19 17:58 Home Medications: Home Medication List Medication Instructions Recorded Confirmed Last Taken Type Rivaroxaban [Xarelto] 20 mg PO DAILY #70 tab 08/09/18 04/25/19 04/25/19 Rx Olmesartan [Benicar] 40 mg PO DAILY 04/25/19 04/25/19 04/25/19 History Pravastatin Sodium [Pravachol] 20 mg PO DAILY 04/25/19 04/25/19 04/25/19 History Past History - Adult - PAST MEDICAL HISTORY-ADULT Major Childhood Illnesses: reports: denies history Cardiovascular: reports: HTN Respiratory: reports: denies history Gastrointestinal: reports: denies history Obstetrical/Gynecological: reports: denies history Genitourinary: reports: denies history Musculoskeletal: reports: denies history Neurological: reports: denies history Endocrine/Immune: reports: thyroid disorder (goiter) Other Conditions: reports: denies history - PRIOR SURGERIES/PROCEDURES Surgical/Procedure History: reports: none - IMMUNIZATION STATUS Childhood Immunizations: See Nurse Assessment Flu Vaccine: See Nurse Assessment - FAMILY HISTORY Family History: reviewed, not pertinent Progress - PLAN OF CARE/RESULTS Result Diagrams: 04/25/19 18:32 04/25/19 18:32 - CONSULTS/PCP/HOSPITALIST Notification #1 *Consult/PCP/Hospitalist*: ONEIL IRELAND Consult Disposition: Admit - CHANGE OF SHIFT REPORT (ED Provider) 1 Report Given and Care Transferred to:: YESENIA PIZANO Departure - Departure Date of Disposition Decision: 04/25/19 Time of Disposition Decision: 20:30 DIAGNOSIS: Chest pain, Hypertension Disposition: ADMITTED INPATIENT 09 Certified Medical Emergency: Emergent Condition: Stable - Critical Care Note This patient required my direct & personal management of CC.: No Attestation - Physician/ ROSITA Attestation Patient care was provided by Advanced Practice Provider:: No The physician spent face to face time with patient:: Yes Advanced Practice Provider documentation review:: Supervising physician onsite and consulted in the evaluation and care of this patient. The physician did have a face to face encounter with the patient.
[2019-04-25 18:44] LABS: BASO# 0.03 X1000 (0.0-0.2); BASO% 0.4 % (0.0-0.8); EOS% 1.4 % (0.0-10.0); HEMOGLOBIN 11.6 g/dL (12.0-16.0); IMM GRAN# 0.01 X1000 (0.0-0.04); IMM GRAN% 0.1 % (0.0-0.5); LYMPH# 2.71 X1000 (1.2-3.4); LYMPH% 37.1 % (20.5-51.1); MCH 28.2 PG (27-31); MCHC 32.2 g/dL (33-37); MCV 87.4 FL (81-99); MONO# 0.74 X1000 (0.11-0.59); MONO% 10.1 % (1.7-9.3); MPV 10.3 FL (7.4-10.4); NEUT# 3.72 X1000 (1.4-6.5); NEUT% 50.9 % (42.2-75.2); PLT 265 X1000 (130-400); RBC 4.12 XMIL (4.2-5.4); RDW 12.5 % (11.5-14.5); WBC 7.31 X1000 (4.8-10.8)
--- NOTE | 2019-04-25 18:46 | Diag Imaging Result Doc PS360 ---
EXAM: CHEST-2 VIEWS INDICATION: cp TECHNIQUE: 2 views COMPARISON: 08/05/2018 FINDINGS: The lungs are grossly clear. There is no discrete pleural fluid collection or pneumothorax. The cardiomediastinal silhouette and central vasculature are grossly unremarkable. IMPRESSION: No evidence of acute pathology by plain radiograph. Electronically signed by Eduard Ag 04/25/2019 6:43 PM
[2019-04-25 19:02] LABS: INR 1.19; PROTIME 15.7 Seconds (11.0-16.0)
[2019-04-25 19:03] LABS: PTT 38.7 Seconds (22.3-41.8)
[2019-04-25 19:11] LABS: AGAP 13; ALBUMIN 4.1 g/dL (3.5-5.0); ALKALINE PHOSPHATASE 94 U/L (32-104); BUN 15 mg/dL (8-22); CALCIUM 9.5 mg/dL (8.8-10.2); CHLORIDE 104 mmol/L (98-107); CK PROFILE 149 U/L (24-173); COSMO 285; CREATININE 0.8 mg/dL (0.5-0.9); ESTIMATED GFR > 60; GLUCOSE 111 mg/dL (70-104); GOT 17 U/L (10-30); GPT 17 U/L (10-36); POTASSIUM 3.6 mmol/L (3.5-5.1); SODIUM 142 mmol/L (136-145); TCO2 25 mmol/L (25-35); TOTAL BILIRUBIN < 0.15 mg/dL (0.20-1.00); TOTAL PROTEIN 7.4 g/dL (6.3-8.3)
[2019-04-25] MEDS ORDERED: NITROGLYCERIN TOP ONE (20:30)
[2019-04-25] MEDS ORDERED: TYLENOL PO PRN (22:07)
[2019-04-25] MEDS ORDERED: MORPHINE IV PRN (22:07)
[2019-04-25] MEDS ORDERED: ZOFRAN ODT PO PRN (22:07)
[2019-04-26] MEDS: TORADOL IV PRN ×2 (00:05→06:01)
[2019-04-26 07:44] VITALS: BP 152/90
[2019-04-26] MEDS ORDERED: PRAVACHOL PO SCH (09:15)
[2019-04-26] MEDS ORDERED: XARELTO PO SCH (09:15)
[2019-04-26] MEDS ORDERED: BENICAR PO SCH (09:15)
--- NOTE | 2019-04-26 10:06 | HISTORY AND PHYSICAL ---
PRIMARY CARE PHYSICIAN: Dr. Ba. CHIEF COMPLAINT: Chest pain. HISTORY OF PRESENT ILLNESS: Ms. Reeves is a 49-year-old female. She states she started having chest pain that started last . Stated that this pain radiates to her back and left arm region. She stated it was a constant pain that never subsided. She stated it was more of an aching pain that was more in the upper back region. She came to the ER last p.m. The patient has a past medical history of hypertension, high cholesterol, and pulmonary embolism. In the ER, her blood pressure was noted to be 164/77. She was rating her pain at a 9. She was given a dose of Toradol this a.m. and states that her pain has subsided with the Toradol. The patient is denying any other symptoms at this time. She does have some sinus problems that she states is just sinus drainage that is a chronic problem for her. The drainage is clear and she does seem to get it at this time of year, every year. There are no other pertinent symptoms at this time. PAST MEDICAL HISTORY: Pulmonary embolism to the right lung in July 2018. The patient is taking Xarelto at this time. Hypertension, hyperlipidemia. PAST SURGICAL HISTORY: Goiter removal. FAMILY HISTORY: Significant for hypertension. SOCIAL HISTORY: The patient lives here in [place]. She works at a bank. She lives with her daughter. She denies any tobacco, alcohol, or illicit drug abuse. ALLERGIES: No known drug allergies. MEDICATIONS: Xarelto 20 mg p.o. daily, pravastatin 20 mg p.o. daily, olmesartan 40 mg p.o. daily. LABS AND DIAGNOSTICS: Blood cell count 7.31, red blood cell count 4.12, hemoglobin 11.6, hematocrit 36, platelet count 65. PT 15.1, INR 1.19, PTT 38.7, D-dimer 0.27. Sodium 142, potassium 3.6, chloride 104, carbon dioxide 25, anion gap 13. BUN 15, creatinine 0.8. Estimated GFR greater than 60. Glucose 111, calcium 9.5, total bilirubin 0.15. AST 17, ALT 17, alkaline phosphatase 94. Troponin less than 0.01. ProBNP 107. Chest x-ray shows no evidence of acute pathology. EKG shows sinus rhythm with a first-degree AV block with a rate of 73 beats per minute. REVIEW OF SYSTEMS: A 12 point review of systems has been obtained and are negative, except what is noted above in HPI. PHYSICAL EXAM: VS: T:98.3 HR: 65 RR: 20 BP: 152/90 O2 Sat: 100% on room air. GENERAL: This is a 49-year-old female. She is lying in bed. She is in no acute distress. She is well nourished and well developed. HEENT: Atraumatic, normocephalic. Pupils equal, round, reactive to light. Sclerae is anicteric. Mucous membranes are moist. NECK: Supple. No lymphadenopathy. Trachea is midline. No JVD. No thyromegaly. No bruits. CARDIOVASCULAR: Regular rate and rhythm. No murmurs, gallops, or rubs appreciated. RESPIRATORY: Lung sounds are clear with equal chest excursion. Respirations are nonlabored with no accessory muscle usage. GI: Abdomen is soft, nontender. Bowel sounds are present x4. NEUROLOGIC: Cranial nerves 2-12 are intact. The patient is awake, alert and oriented. She is able to follow all commands appropriately. MUSCULOSKELETAL: Full distal strength noted. No abnormalities, no deformities. EXTREMITIES: No clubbing, no cyanosis, no edema. DP, PT pulses are present and palpable. SKIN: Warm, dry and intact. No rashes. No bruises. No diaphoresis. ASSESSMENT AND PLAN: 1. Chest pain, rule out acute coronary syndrome. We admitted this patient to the medical floor. We performed troponin levels and electrocardiogram. 2. Hypertension. We will resume her home hypertensive medication. 3. Hyperlipidemia. We will resume her home cholesterol medications. PLAN: We have admitted this patient to the medical floor, placed her on care director. We trended her troponin levels. We are going to rule out acute coronary syndrome. Give her morphine as needed for pain, and we have also ordered anti-inflammatory Toradol as needed for pain. Give her aspirin. Repeat her EKG as needed. Put her on a healthy heart diet. All other further treatment pending hospital course and lab data. Dictated by CATHY Mckeon for Leif Benito MD cc: MD Susan Nesbitt MD [facility]
--- NOTE | 2019-04-26 11:03 | HISTORY AND PHYSICAL ---
ADDENDUM REPORT I saw the patient face to face and fully agree with the assessment and plan of nurse practitioner, Elle Barbosa. This is a 49-year-old female who came in to the emergency room with back and chest pain. Her cardiac enzymes have been negative, and all the lab work is also negative. She does not have any chest pain at this time. We are planning to discharge her home, to be followed with her PCP. cc: Leif Benito MD
--- NOTE | 2019-04-26 13:21 | DISCHARGE SUMMARY ---
ADMISSION DATE: 04/25/2019 DISCHARGE DATE: 04/26/2019 DISCHARGE DIAGNOSIS: 1. Chest pain that is atypical. 2. Upper back pain secondary to muscular sprain. 3. Hypertension. 4. Dyslipidemia. 5. History of pulmonary embolism for which she has been taking rivaroxaban. HOSPITAL COURSE: The patient was admitted from the emergency department, but had all her lab work and cardiac enzymes negative. She has been asymptomatic since her admission and wants to go home. We did not see any indication to keep her at the hospital and therefore, we are going to discharge her home today. DISCHARGE MEDICATIONS: 1. Acetaminophen on as needed basis. 2. Olmesartan 40 mg orally once daily. 3. Pravastatin 20 mg orally once daily at bedtime. 4. Xarelto 20 mg orally once daily. FOLLOW-UP: She will follow up with her PCP, Dr. Susan Ba, in approximately 2 to 3 days. CONDITION: Stable. DISPOSITION: Home. cc: MD Susan Nesbitt MD
== END 2019-04-26 11:09 | disposition home or self-care (01) | DRG 313 ==
LOC: P.ED 17:34 → INTOOBSV 17:35 → P.MEDSURG 17:35 → SUATTDRO 17:35
PROVIDERS: ATTEND Internal Medicine